=== PATIENT | female | born 1990 | race American Indian/Alaskan Native ===

== ENCOUNTER 2020-04-26 22:01 | Emergency (ER) | payer SELFPAY ==
[2020-04-26] MEDS ORDERED: HYDROcodone/ACETAMINOPHEN 7.5-325MG TAB PO ONE (23:08)
[2020-04-26] MEDS ORDERED: IBUPROFEN 600 MG TAB PO ONE (23:08)
[2020-04-26] MEDS ORDERED: ONDANSETRON 4 MG ODT TAB PO ONE (23:08)
--- NOTE | 2020-04-26 23:16 | XRay Report ---
RIGHT HAND 3 VIEWS INDICATION: Pain and swelling. COMPARISON: No relevant prior imaging study available. FINDINGS: Distal radial metaphyseal fracture may be chronic, correlate clinically. No acute fracture is seen within the hand. IMPRESSION: 1. Distal radius fracture appears to be chronic, correlate clinically. Signer Name: Jose Lemon MD Signed: 04/26/2020 11:12 PM Workstation Name: [id number]
--- NOTE | 2020-04-27 00:52 | Emergency Department Report ---
ED Upper Extremity Inj HPI - General Chief Complaint: Extremity Injury, Upper Stated Complaint: RT ARM INJURY/FALL Source: patient Mode of arrival: Ambulatory Limitations: No Limitations - History of Present Illness Initial Comments: Patient is a nulliparous 29-year-old -[place] female with no past medical history presents to the ED with acute onset persistent severe right wrist pain and swelling after she slipped and fell of a skating board while skating and is getting about 4 hours ago. Patient states that she landed on her right wrist to break the fall. Patient states that the pain has been persistent and worse especially in the last 2 hours. Patient states that the pain is especially worse with active range of motion of the right wrist. Patient denies loss of consciousness, neck pain, chest pain, shortness of breath, back pain, head injury, dizziness, headache, seizures, syncope, numbness and tingling or weakness of upper and lower extremities bilaterally. MD Complaint: Injury to:: right, wrist, hand -: Sudden, hour(s) (4) Other Extremity Injury: Hand: Right (pain), Wrist: Right (pain, swelling) Other Injuries: none Place: other (Skating ring) Severity scale (0 -10): 8 Improves With: none Worsens With: movement of extremity Context: fall, direct blow, injury (Fell and landed on the right wrist), skateboard accident, sports-related injury Associated Symptoms: denies other symptoms. denies: weakness, numbness, neck pain, suspects foreign body, nausea/vomiting - Related Data Previous Rx's Medication Instructions Recorded Last Taken Type HYDROcodone/APAP 7.5-325 [Demorest 1 each PO Q6HR PRN #12 tablet 04/27/20 Unknown Rx 7.5/325] Ibuprofen [Motrin] 800 mg PO Q8HR PRN #30 tablet 04/27/20 Unknown Rx Allergies Allergy/AdvReac Type Severity Reaction Status Date / Time No Known Allergies Allergy Unverified 04/26/20 22:41 ED Review of Systems ROS: Stated complaint: RT ARM INJURY/FALL Other details as noted in HPI Constitutional: denies: chills, fever Eyes: denies: eye pain, eye discharge, vision change ENT: denies: ear pain, throat pain Respiratory: denies: cough, shortness of breath, wheezing Cardiovascular: denies: chest pain, palpitations Endocrine: no symptoms reported Gastrointestinal: denies: abdominal pain, nausea, diarrhea Genitourinary: denies: urgency, dysuria, discharge Musculoskeletal: joint swelling (Right wrist swelling), arthralgia (Right wrist pain and swelling), other (Right hand pain). denies: back pain Skin: denies: rash, lesions Neurological: denies: headache, weakness, paresthesias Psychiatric: denies: anxiety, depression Hematological/Lymphatic: denies: easy bleeding, easy bruising ED Past Medical Hx - Past Medical History Previous Medical History?: No - Surgical History Past Surgical History?: No - Social History Smoking Status: Former Smoker Substance Use Type: None - Medications Home Medications: Home Medications Medication Instructions Recorded Confirmed Last Taken Type HYDROcodone/APAP 7.5-325 [Demorest 1 each PO Q6HR PRN #12 tablet 04/27/20 Unknown Rx 7.5/325] Ibuprofen [Motrin] 800 mg PO Q8HR PRN #30 tablet 04/27/20 Unknown Rx ED Physical Exam - General Limitations: No Limitations General appearance: alert, in no apparent distress - Head Head exam: Present: atraumatic, normocephalic, normal inspection - Eye Eye exam: Present: normal appearance, PERRL, EOMI Pupils: Present: normal accommodation - ENT ENT exam: Present: normal exam, normal orophraynx, mucous membranes moist, TM's normal bilaterally, normal external ear exam - Neck Neck exam: Present: normal inspection, full ROM. Absent: tenderness - Respiratory Respiratory exam: Present: normal lung sounds bilaterally. Absent: respiratory distress, wheezes, rales, stridor, chest wall tenderness, accessory muscle use, decreased breath sounds, prolonged expiratory - Cardiovascular Cardiovascular Exam: Present: normal rhythm, tachycardia, normal heart sounds. Absent: systolic murmur, diastolic murmur, rubs, gallop - GI/Abdominal GI/Abdominal exam: Present: soft, normal bowel sounds. Absent: distended, tenderness, guarding, rebound, hyperactive bowel sounds, mass - Extremities Exam Extremities exam: Present: normal inspection, tenderness (Palpable severe right wrist tenderness and mild swelling with limited range of motion due to pain), normal capillary refill, joint swelling (Mild right wrist swelling). Absent: full ROM (Limited range of motion of right wrist due to pain), calf tenderness - Back Exam Back exam: Present: normal inspection, full ROM. Absent: tenderness, CVA tenderness (R), CVA tenderness (L), muscle spasm, paraspinal tenderness, vertebral tenderness - Neurological Exam Neurological exam: Present: alert, oriented X3, CN II-XII intact, normal gait, reflexes normal - Psychiatric Psychiatric exam: Present: normal affect, normal mood - Skin Skin exam: Present: warm, dry, intact, normal color. Absent: rash ED Course Vital Signs 04/26/20 04/27/20 22:35 01:12 Temperature 98.4 F 98.7 F Pulse Rate 108 H 99 H Respiratory 18 20 Rate Blood Pressure 151/88 Blood Pressure 120/78 [Right] O2 Sat by Pulse 91 100 Oximetry ED Medical Decision Making - Radiology Data Radiology results: report reviewed, image reviewed Findings [facility] [address] [place] [address] XRay Report Signed Patient: AASHISH DOWNEY MR#: [id number] : 1990 Acct:[id number] Age/Sex: 29 / F ADM Date: 04/26/20 Loc: ED Attending Dr: Ordering Physician: EDGAR MADDEN III, MD Date of Service: 04/26/20 Procedure(s): XR hand 3+V RT Accession Number(s): [id number] cc: EDGAR MADDEN III, MD Fluoro Time In Minutes: RIGHT HAND 3 VIEWS INDICATION: Pain and swelling. COMPARISON: No relevant prior imaging study available. FINDINGS: Distal radial metaphyseal fracture may be chronic, correlate clinically. No acute fracture is seen within the hand. IMPRESSION: 1. Distal radius fracture appears to be chronic, correlate clinically. Signer Name: Jose Lemon MD Signed: 04/26/2020 11:12 PM Workstation Name: [id number] Transcribed By: ZAID Dictated By: Jose Lemon MD Electronically Authenticated By: Jose Lemon MD Signed Date/Time: 04/26/202311 DD/ 09 TD/TT: - Medical Decision Making This is a nulliparous 29-year-old -[place] female with no past medical history presents to the ED with acute onset persistent severe right wrist pain and swelling after she slipped and fell of a skating board while skating and is getting about 4 hours ago. Patient states that she landed on her right wrist to break the fall. Patient states that the pain has been persistent and worse especially in the last 2 hours. Patient states that the pain is especially worse with active range of motion of the right wrist. In the ED, patient is alert and oriented x3 and is not in distress. Patient was treated for pain in the ED and right wrist x-ray shows distal right radial metaphyseal fracture. Patient's right wrist was splinted with sugar tong splint and the right arm was immobilized in an arm sling. On reevaluation, patient's pain is well controlled medications, and patient is neurovascularly intact after the splint application. Patient was discharged home on pain medications and given a referral to the orthopedic surgeon Dr. Zuniga for follow-up. Patient was advised to contact Dr. Zuniga's office first thing in the morning on , April 27 2020 to schedule a follow-up appointment. Patient was advised to return to the ED immediately if symptoms get worse. - Differential Diagnosis Wrist fracture; hand fracture; hand sprain; wrist sprain; muscle strain Critical care attestation.: If time is entered above; I have spent that time in minutes in the direct care of this critically ill patient, excluding procedure time. ED Disposition Clinical Impression: Colles' fracture of right radius, initial encounter for closed fracture, Sprain and strain of right hand Disposition: DC-01 TO HOME OR SELFCARE Is pt being admited?: No Does the pt Need Aspirin: No Condition: Stable Instructions: Wrist Injury (ED), Wrist Fracture in Adults (ED), Hand Sprain (ED) Additional Instructions: Your right wrist x-ray shows distal radius fracture. Therefore take pain medications with food, drink plenty of fluids and follow-up with the orthopedic surgeon Dr. Zuniga in 2 to 3 days for reevaluation. Contact Dr. Zuniga's office first thing in the morning on April to schedule a follow-up appointment. Return to the ED immediately if symptoms get worse. Prescriptions: Ibuprofen [Motrin] 800 mg PO Q8HR PRN #30 tablet PRN Reason: Pain , Severe (7-10) HYDROcodone/APAP 7.5-325 [Demorest 7.5/325] 1 each PO Q6HR PRN #12 tablet PRN Reason: Pain Referrals: JIMY ZUNIGA MD [Staff Physician] - 3-5 Days Forms: Work/School Release Form(ED) Time of Disposition: 00:50 Print Language: ARABIC
[2020-04-27 01:13] VITALS: BP 120/78
== END 2020-04-27 01:06 | disposition home or self-care (01) ==
LOC: ED 22:01
DX: S52.531A Colles' fracture of right radius, initial encounter for closed fracture (principal); X58.XXXA Exposure to other specified factors, initial encounter; Y93.89 Activity, other specified; Y92.89 Other specified places as the place of occurrence of the external cause; Y99.8 Other external cause status
CPT/HCPCS: Q0162